=== PATIENT | female | born 1970 | race African-American/Black ===

== ENCOUNTER → 2017-10-10 | Outpatient (CLI) | payer OTHER | END | disposition home or self-care (01) | LOC: KCIC MAMMO 14:10 | DX: Z12.31 Encounter for screening mammogram for malignant neoplasm of breast (principal) | CPT/HCPCS: 77067 ==

== ENCOUNTER → 2019-03-30 | Outpatient (CLI) | payer OTHER ==
[2015-05-17 18:51] VITALS: BP 137/96
--- NOTE | 2019-03-30 16:13 | KCIC ---
Bilateral digital screening mammograms: Reason for examination: Routine screening. Comparison is made to previous studies dated 10/10/2017 and 07/15/2015. Interpretation was made with the benefit of CAD. The skin and nipples show no abnormalities. No abnormal axillary lymph nodes are seen. The breast parenchyma is extremely dense. (Breast density: Category D.) There are no dominant masses, suspicious calcifications or architectural distortion. Impression: No evidence of malignancy. Recommend routine screening. Your patient's mammogram demonstrates that she has dense breast tissue (breast density category C or D), which could hide abnormalities, and if she has other risk factors for breast cancer that have been identified, she might benefit from supplemental screening tests that may be suggested by you as her ordering physician. Dense breast tissue, in and of itself, is a relatively common condition. Therefore, this information is not provided to cause undue concern, but rather to raise your awareness and to promote discussion with your patient regarding the presence of other risk factors, in addition to dense breast tissue. Your patient's mammography results will be sent to her. BI-RAD Category 1: Negative. "Our facility is accredited by the [employer] Mammography Program." This patient's information has been entered into a reminder system for the patient to be notified with the results of her examination and a target date for the next mammogram. Electronically signed by: Samantha Ordonez MD (03/30/2019 4:11 PM) [id number]
== END | disposition home or self-care (01) ==
LOC: KCIC MAMMO 14:45
PROVIDERS: ATTEND Family Medicine
DX: Z12.31 Encounter for screening mammogram for malignant neoplasm of breast (principal)
CPT/HCPCS: 77067

== ENCOUNTER → 2021-04-21 | Outpatient (CLI) | payer OTHER ==
[2015-05-17 18:51] VITALS: BP 137/96
--- NOTE | 2021-04-23 11:11 | SLEEP ---
DATE OF STUDY: 04/21/2021 HOME SLEEP STUDY ATTENDING PHYSICIAN: Elle Ford MD The patient is 51 years old who weighs 197 pounds with a BMI of 30.9. The patient's [place] score was 12. The patient underwent home sleep study performed by [facility]. Total recording time was 612 minutes. During the night study, the patient had 135 obstructive apneas, 28 central apneas, 54 mixed apneas and 37 hypopneas. The patient's AHI was 25 per hour. Nocturnal oximetry study revealed an average oxygen saturation of 94% with the lowest of 75%. 23 minutes were spent with oxygen saturation less than 90%. Mean heart rate 69 beats per minute. IMPRESSION: 1. Moderate obstructive sleep apnea at an AHI of 25.4 per hour. 2. Nocturnal hypoxia secondary to obstructive sleep apnea. RECOMMENDATIONS: 1. The patient would benefit from treatment of sleep apnea with CPAP. This can be done as an in-lab CPAP titration versus home auto CPAP. 2. Once the patient is optimally treated with CPAP, then follow up in 4-6 weeks to assess compliance and to document clinical improvement. 3. Weight loss is advised. 4. Avoid [employer] depressants. 5. Cautioned regarding driving until symptoms of sleep apnea resolve with CPAP. DANA DR: Brandon TID: [id number] CC: ELLE FORD MD
== END ==
LOC: RT 11:03
PROVIDERS: ATTEND Family Medicine
DX: G47.33 Obstructive sleep apnea (adult) (pediatric) (principal); G47.34 Idiopathic sleep related nonobstructive alveolar hypoventilation
CPT/HCPCS: G0399